=== PATIENT | female | born 1945 | race Caucasian/White ===

== ENCOUNTER → 2018-01-02 07:58 | Outpatient (CLI) | payer MEDICARE, BC | END | disposition home or self-care (01) | LOC: D.US 07:58 | DX: R22.1 Localized swelling, mass and lump, neck (principal) ==

== ENCOUNTER → 2018-03-27 09:27 | Outpatient (CLI) | payer MEDICARE, OTHER ==
[2018-03-27 10:43] LABS: ALBUMIN 3.6 g/dL (3.4-5.0); ALKALINE PHOSPHATASE 91 U/L (46-116); ALT (SGPT) 16 U/L (10-68); CALC OSMOLALITY 264 mosm/kg (275-300); CALCIUM 9.6 mg/dL (8.5-10.1); CARBON DIOXIDE 26.1 mmol/L (21.0-32.0); CHLORIDE - SERUM 96 mmol/L (98-107); CREATININE - SERUM 0.8 mg/dL (0.6-1.3); GLUCOSE 91 mg/dL (74-106); POTASSIUM - SERUM 3.6 mmol/L (3.5-5.1); PROTEIN - SERUM 8.3 g/dL (6.4-8.2); SODIUM 133 mmol/L (136-145); UREA NITROGEN 11 mg/dL (7-18); eGFR NON AFRICAN AMERICAN 75 mL/min (90-120)
== END | disposition home or self-care (01) ==
LOC: D.US 09:27
PROVIDERS: Internal Medicine Gastroenterology
DX: R10.11 Right upper quadrant pain (principal); R19.7 Diarrhea, unspecified

== ENCOUNTER → 2018-06-14 08:33 | Outpatient (CLI) | payer MEDICARE, OTHER | END | disposition home or self-care (01) | LOC: D.LAB 08:33 | DX: B96.81 Helicobacter pylori [H. pylori] as the cause of diseases classified elsewhere (principal) ==

== ENCOUNTER → 2018-06-28 17:59 | Outpatient (CLI) | payer MEDICARE, OTHER | END | disposition home or self-care (01) | LOC: D.MAMMO 13:15 | DX: Z12.31 Encounter for screening mammogram for malignant neoplasm of breast (principal) ==

== ENCOUNTER → 2018-07-25 22:03 | Outpatient (CLI) | payer MEDICARE, OTHER | END | disposition home or self-care (01) | LOC: D.MAMMO 13:00 | DX: N64.89 Other specified disorders of breast (principal) ==

== ENCOUNTER 2019-08-17 09:00 | Outpatient (CLI) | payer MEDICARE, OTHER | END 2019-08-17 10:00 | disposition home or self-care (01) | LOC: D.MAMMO 09:00 | PROVIDERS: ATTEND Family Medicine | DX: Z12.31 Encounter for screening mammogram for malignant neoplasm of breast (principal) ==

== ENCOUNTER 2020-08-15 11:48 | Day surgery (SDC) | payer MEDICARE, OTHER ==
[~2020-08-15] VITALS: Ht 172.7 cm; Wt 63.5 kg
[2020-08-15 12:27] LABS: BASOPHILS 0.2 % (0-2); EOSINOPHILS 0.5 % (0-7); HEMATOCRIT 32.9 % (36.0-48.0); HEMOGLOBIN 11.2 g/dL (12-16); IMMATURE GRANULOCYTES 0.2 % (0-5); LYMPHOCYTES 29.9 % (15-50); MCH 29.9 pg (26.0-34.0); MEAN PLATELET VOLUME 8.5 fL (7.4-10.4); MONOCYTES 9.6 % (2-11); NEUTROPHILS 59.6 % (40-80); PLATELET COUNT 409 10x3/uL (130-400); RBC 3.74 10x6/uL (4.00-5.40); RDW 12.9 % (11.5-14.5); WBC 4.2 10x3/uL (4.8-10.8)
[2020-08-15 12:35] LABS: APTT 29.3 SECONDS (22.8-39.4); INR 0.99 (0.85-1.17); PROTIME 13.1 SECONDS (11.6-15.0)
[2020-08-15 13:09] LABS: ALBUMIN 4.2 g/dL (3.4-5.0); ALKALINE PHOSPHATASE 78 U/L (30-120); ALT (SGPT) 17 U/L (10-68); BILIRUBIN - TOTAL 0.49 mg/dL (0.2-1.3); CALC OSMOLALITY 258 mosm/kg (275-300); CALCIUM 9.5 mg/dL (8.5-10.1); CARBON DIOXIDE 23.7 mmol/L (21.0-32.0); CHLORIDE - SERUM 94 mmol/L (98-107); CREATININE - SERUM 0.7 mg/dL (0.6-1.3); GLUCOSE 100 mg/dL (74-106); POTASSIUM - SERUM 3.6 mmol/L (3.5-5.1); PROTEIN - SERUM 7.5 g/dL (6.4-8.2); SODIUM 129 mmol/L (136-145); UREA NITROGEN 12 mg/dL (7-18); eGFR NON AFRICAN AMERICAN 87 mL/min (90-120)
[2020-08-15 14:03] VITALS: Ht 172.7 cm; Wt 63.5 kg
--- NOTE | 2020-08-15 15:41 | NUR ---
ANESTHESIA AT BEDSIDE. ADDING MORE NUMB TO BLOCK. PATIENT COMPLAINING OF PAIN. STATES SHE CAN FEEL EVERYTHING. JAREK SAUCEDO AT BEDSIDE.
--- NOTE | 2020-08-15 19:57 | NUR ---
RX'D WITH [facility] FOR C/O OF LEFT HIP PAIN AND PT REPORTS IMPROVEMENT. LEFT LE REMAINS NUMB AND PAIN FREE. IV D/C'D WITH CANNULA INTACT, PRESSURE HELD AND DRSG PLACED. DISCHARGE INSTRUCTIONS GIVEN AND BOTH PT AND VERBALIZED AN UNDERSTANDING. DISCHARGED HOME IN STABLE CONDITION AND WITOUT C/O
--- NOTE | 2020-08-16 12:33 | OP ---
PATIENT NAME: JOSE MARIA JOHNSON MEDICAL RECORD: [id number] :49 LOCATION:[facility] ADMISSION DATE: SURGEON: BHAVIN HERNANDEZ DO DATE OF OPERATION: 08/15/2020 PROCEDURE PERFORMED: Left distal fibular open reduction and internal fixation. PREOPERATIVE DIAGNOSIS: Left distal fibular fracture. POSTOPERATIVE DIAGNOSIS: Left distal fibular fracture. INDICATIONS: Ms. Johnson is a 74-year-old female who broke her left distal fibula a few weeks ago. She has been having pain and got x-rays and she came to see me in the office yesterday. I saw x-rays and saw that it was laterally displaced. Nurse practitioner and I looked at it, the nurse practitioner informed her that there was a risk for drifting out laterally near the fracture as this was displaced more than 3 mm and that open reduction and internal fixation would be the best option for her to avoid severe posttraumatic arthritis, at least still at risk for it as well as failure of implants, nonunion, malunion, blood clots, and even and she signed the consent. SURGEON: Bhavin Hernandez DO DESCRIPTION OF PROCEDURE: The patient was taken to the operative suite and laid in the supine position after given a block by anesthesia and a gram of Ancef. The patient was sedated and an LMA ulna was placed. The left lower extremity was then prepped and draped in sterile fashion. Time-out was performed. Everyone was in agreement with the correct site, side, patient, and procedure. I then exsanguinated the left lower extremity with an Esmarch and the tourniquet was inflated to 350 mmHg and was up for 17 minutes. I made incision over the lateral aspect of the ankle. I made careful dissection down to the fibula and then reduced the fracture, placed a Ariella 4-hole locking plate on the fibula and pinned it into place, confirmed to be in good position in AP and lateral and then put 4 distal locking screws in and 2 screws in the shaft, one cortical and the other one locking and then another cortical one in the shaft. These were all confirmed to be in good position in AP and lateral. I then stressed the ankle joint and no medial space widening was noted on the mortise view. The tourniquet was then let down and bleeding was coagulated with pickup and Bovie. Tony Lima, certified paralegal, closed the wound with 2-0 Vicryl in inverted interrupted fashion and placed ZipLine on the ankle. Adaptic, 4 x 4, ABD, cast padding were then placed, ABD on the heel as well and then she was placed in a well-padded 4 x 30 splint posteriorly and secured with a 6-inch Mayur wrap. She was then awakened and taken to recovery in stable condition. BLOOD LOSS: Minimal. COMPLICATIONS: None. NTS:[id number] Voice Confirmation ID: [id number] DOCUMENT ID: [id number] OPERATIVE REPORT [id number] JOSE MARIA JOHNSON MICHAEL D, DO at 1233 CC: [id number] DICTATION DATE: 08/15/20 1519 AUTOMATION/CONTROLS MANAGER: 08/16/20 0300 [facility] 08/15/20 [id number] [place] [address]
== END 2020-08-15 17:45 | disposition home or self-care (01) ==
LOC: D.OPS 11:48
PROVIDERS: Anesthesiology; ATTEND Orthopaedic Surgery
DX: S82.62XA Displaced fracture of lateral malleolus of left fibula, initial encounter for closed fracture (principal); M25.572 Pain in left ankle and joints of left foot